=== PATIENT | female | born 1965 | race Caucasian/White ===

== ENCOUNTER 2016-03-30 11:21 | Emergency (ER) | payer SELFPAY ==
[~2016-03-30] VITALS: Ht 154.9 cm; Wt 80.0 kg
[2016-03-30] MEDS ORDERED: LANTUS100 MG/ML SC (12:50)
[2016-03-30] MEDS ORDERED: HUMALOG100 UNIT/M SC (12:51)
[2016-03-30] MEDS ORDERED: ALBUTEROL SUL0.083 % IN (12:53)
[2016-03-30] MEDS ORDERED: OXYCODONE HCL5 MG PO (12:55)
[2016-03-30] MEDS ORDERED: GABAPENTIN300 MG PO (12:56)
[2016-03-30 13:46] LABS: HEMATOCRIT 41.1 % (37.0-47.0); HEMOGLOBIN 13.8 g/dl (12.0-16.0); IMMATURE GRANULOCYTES 0.3 % (0.0-1.0); MEAN CELL VOLUME 86.5 fL CALC (80.0-100.0); MEAN CORPUSCULAR HGB 29.1 pG CALC (26.0-32.0); MEAN CORPUSCULAR HGB CONC 33.6 g/L CALC (32.0-36.0); NEUT# 6.45 thou/uL (2.00-7.15); RED BLOOD COUNT 4.75 mill/uL (4.20-5.60); RED CELL DISTRI WIDTH 14.1 % (11.5-15.5)
[2016-03-30 13:58] LABS: ALBUMIN 3.9 g/dL (3.2-5.0); ALKALINE PHOSPHATASE 177 u/l (38-126); ANION GAP 17 (6-22 (CALC)); BILIRUBIN, TOTAL 0.5 mg/dL (0.0-1.4); BUN 16 mg/dL (7-17); BUN/CREATININE RATIO 28 (12-20 (CALC)); CARBON DIOXIDE 26 mmol/l (22-30); CHLORIDE 107 mmol/l (95-108); CREATININE 0.6 mg/dL (0.5-1.0); GFR > 60 ML/MIN (>=60 (CALC)); GFR FOR AFR.AMER. > 60 ML/MIN (>=60 (CALC)); GLUCOSE 87 mg/dL (65-105); LIPASE 115 u/l (23-300); POTASSIUM 4.3 mmol/l (3.5-5.1); SGOT/AST 35 u/l (14-36); SGPT/ALT 43 u/l (9-52); SODIUM 145 mmol/l (137-146); TOTAL PROTEIN 8.1 g/dL (6.3-8.2)
[2016-03-30 18:08] LABS: URINE BILIRUBIN - DIPSTICK NEGATIVE (NEGATIVE); URINE BLOOD DIPSTICK NEGATIVE (NEGATIVE); URINE CLARITY CLEAR; URINE COLOR YELLOW; URINE GLUCOSE - DIPSTICK NEGATIVE (NEGATIVE); URINE KETONE NEGATIVE (NEGATIVE); URINE LEUK ESTERASE NEGATIVE (Negative); URINE NITRITE - DIPSTICK NEGATIVE (Negative); URINE PH 6.5 (4.5-8.0); URINE PROTEIN - DIPSTICK NEGATIVE (NEG-TRACE); URINE SPECIFIC GRAVITY 1.015
[2016-03-30] MEDS ORDERED: PERCOCET 5/325M1 TAB PO (18:30)
[2016-03-30] MEDS ORDERED: CLEOCIN150 MG PO (18:30)
[2016-03-30 19:39] VITALS: BP 131/71
== END 2016-03-30 19:39 | disposition home or self-care (01) | DRG 394 ==
LOC: ED 11:21
PROVIDERS: Emergency Medicine
DX: K43.9 Ventral hernia without obstruction or gangrene (principal); L03.114 Cellulitis of left upper limb; E11.9 Type 2 diabetes mellitus without complications; J45.909 Unspecified asthma, uncomplicated; F17.210 Nicotine dependence, cigarettes, uncomplicated
CPT/HCPCS: Q9967

== ENCOUNTER 2016-11-19 02:37 | Observation (INO) | payer OTHER ==
[~2016-11-19] VITALS: Ht 154.9 cm; Wt 105.0 kg
[~2016-11-19 02:37] MED LIST: ALBUTEROL SUL0.083 % IN; CLEOCIN150 MG PO; GABAPENTIN300 MG PO; HUMALOG100 UNIT/M SC; LANTUS100 MG/ML SC; OXYCODONE HCL5 MG PO; PERCOCET 5/325M1 TAB PO
[2016-11-19 03:37] LABS: URINE BILIRUBIN - DIPSTICK NEGATIVE (NEGATIVE); URINE BLOOD DIPSTICK NEGATIVE (NEGATIVE); URINE CLARITY SLIGHT CLOUDY; URINE COLOR YELLOW; URINE GLUCOSE - DIPSTICK NEGATIVE (NEGATIVE); URINE KETONE NEGATIVE (NEGATIVE); URINE NITRITE - DIPSTICK POSITIVE (Negative); URINE PH 5.5 (4.5-8.0); URINE PROTEIN - DIPSTICK NEGATIVE (NEG-TRACE); URINE SPECIFIC GRAVITY >=1.030
[2016-11-19 03:38] LABS: HEMATOCRIT 39.2 % (37.0-47.0); IMMATURE GRANULOCYTES 0.2 % (0.0-1.0); MEAN CELL VOLUME 91.8 fL CALC (80.0-100.0); MEAN CORPUSCULAR HGB 30.4 pG CALC (26.0-32.0); MEAN CORPUSCULAR HGB CONC 33.2 g/L CALC (32.0-36.0); NEUT# 5.65 thou/uL (2.00-7.15); RED BLOOD COUNT 4.27 mill/uL (4.20-5.60); RED CELL DISTRI WIDTH 13.3 % (11.5-15.5)
[2016-11-19 03:42] LABS: URINE BACTERIA MANY hpf; URINE LEUK ESTERASE SMALL (NEGATIVE); URINE MUCUS MODERATE hpf (NONE-FEW); URINE RBC 0-2 RBC/hpf (0-5); URINE SQUAMOUS EPITHELIAL CELL MANY EPI/hpf (0-FEW)
[2016-11-19 03:43] LABS: BARBITURATES NEGATIVE (NEGATIVE); COCAINE POSITIVE (NEGATIVE); METHADONE NEGATIVE (NEGATIVE); OXCYCODONE NEGATIVE (NEGATIVE); TETRAHYDROCANNABIONOL NEGATIVE (NEGATIVE); TRICYLIC ANTIDEPRESSANTS NEGATIVE (NEGATIVE)
[2016-11-19 03:48] LABS: ALBUMIN 3.9 g/dL (3.2-5.0); ALKALINE PHOSPHATASE 175 u/l (38-126); ANION GAP 16 (6-22 (CALC)); BILIRUBIN, TOTAL 0.9 mg/dL (0.0-1.4); BUN 15 mg/dL (7-17); BUN/CREATININE RATIO 21 (12-20 (CALC)); CALCIUM 9.1 mg/dL (8.4-10.2); CARBON DIOXIDE 27 mmol/l (22-30); CHLORIDE 106 mmol/l (95-108); CREATININE 0.7 mg/dL (0.5-1.0); GFR > 60 ML/MIN (>=60 (CALC)); GFR FOR AFR.AMER. > 60 ML/MIN (>=60 (CALC)); GLUCOSE 102 mg/dL (65-105); POTASSIUM 3.8 mmol/l (3.5-5.1); SGOT/AST 35 u/l (14-36); SGPT/ALT 37 u/l (9-52); SODIUM 144 mmol/l (137-146); TOTAL PROTEIN 7.7 g/dL (6.3-8.2)
[2016-11-19 05:55] VITALS: BP 111/56
[2016-11-19 07:50] VITALS: BP 111/56
[2016-11-19 16:30] VITALS: BP 98/62
[2016-11-19 19:32] VITALS: BP 116/70
[2016-11-19] MEDS ORDERED: GABAPENTIN100 MG PO (19:38)
[2016-11-20 00:12] LABS: HEMATOCRIT 38.7 % (37.0-47.0); HEMOGLOBIN 12.9 g/dl (12.0-16.0); MEAN CELL VOLUME 91.9 fL CALC (80.0-100.0); MEAN CORPUSCULAR HGB 30.6 pG CALC (26.0-32.0); MEAN CORPUSCULAR HGB CONC 33.3 g/L CALC (32.0-36.0); RED BLOOD COUNT 4.21 mill/uL (4.20-5.60); RED CELL DISTRI WIDTH 13.4 % (11.5-15.5)
[2016-11-20 04:44] VITALS: BP 114/71
[2016-11-20 07:04] LABS: ANION GAP 13 (6-22 (CALC)); BUN 14 mg/dL (7-17); BUN/CREATININE RATIO 21 (12-20 (CALC)); CALCIUM 8.8 mg/dL (8.4-10.2); CARBON DIOXIDE 28 mmol/l (22-30); CHLORIDE 105 mmol/l (95-108); CREATININE 0.7 mg/dL (0.5-1.0); GFR > 60 ML/MIN (>=60 (CALC)); GFR FOR AFR.AMER. > 60 ML/MIN (>=60 (CALC)); GLUCOSE 113 mg/dL (65-105); SODIUM 142 mmol/l (137-146)
[2016-11-20 08:30] VITALS: BP 107/58
[2016-11-20] MEDS ORDERED: CIPROFLOXACN500 MG PO (10:42)
[2016-11-20] MEDS ORDERED: GABAPENTIN100 MG PO (12:28)
[2016-11-20] MEDS ORDERED: LASIX 20 MG TAB20 MG PO (12:31)
== END 2016-11-20 12:57 | disposition home or self-care (01) | DRG 603 ==
LOC: ED 02:37 → ED-I 04:20 → ED 04:35 → MS2 04:36
PROVIDERS: Emergency Medicine; ADMIT Internal Medicine; ATTEND Internal Medicine
PROC: 3E0234Z Introduction of Serum, Toxoid and Vaccine into Muscle, Percutaneous Approach (ICD-10-PCS; principal; 2016-11-20)
PROC: 3E0234Z Introduction of Serum, Toxoid and Vaccine into Muscle, Percutaneous Approach (ICD-10-PCS; 2016-11-20)
DX: L03.116 Cellulitis of left lower limb (principal); E11.40 Type 2 diabetes mellitus with diabetic neuropathy, unspecified; K70.9 Alcoholic liver disease, unspecified; N39.0 Urinary tract infection, site not specified; L03.115 Cellulitis of right lower limb; B19.20 Unspecified viral hepatitis C without hepatic coma; F15.10 Other stimulant abuse, uncomplicated; F14.10 Cocaine abuse, uncomplicated; F11.10 Opioid abuse, uncomplicated; J45.909 Unspecified asthma, uncomplicated; F17.210 Nicotine dependence, cigarettes, uncomplicated; F10.21 Alcohol dependence, in remission; B96.20 Unspecified Escherichia coli [E. coli] as the cause of diseases classified elsewhere; Z23 Encounter for immunization; Z91.14 Patient's other noncompliance with medication regimen; Z79.4 Long term (current) use of insulin
CPT/HCPCS: G0378; J1650; J1956

== ENCOUNTER 2016-12-04 18:58 | Emergency (ER) | payer OTHER ==
[~2016-12-04] VITALS: Ht 154.9 cm; Wt 109.0 kg
[~2016-12-04 18:58] MED LIST changes: +CIPROFLOXACN500 MG PO; +GABAPENTIN100 MG PO; +LASIX 20 MG TAB20 MG PO
[2016-12-04 19:58] LABS: HEMATOCRIT 40.4 % (37.0-47.0); HEMOGLOBIN 13.6 g/dl (12.0-16.0); IMMATURE GRANULOCYTES 0.7 % (0.0-1.0); MEAN CELL VOLUME 90.6 fL CALC (80.0-100.0); MEAN CORPUSCULAR HGB 30.5 pG CALC (26.0-32.0); MEAN CORPUSCULAR HGB CONC 33.7 g/L CALC (32.0-36.0); NEUT# 6.77 thou/uL (2.00-7.15); RED BLOOD COUNT 4.46 mill/uL (4.20-5.60); RED CELL DISTRI WIDTH 13.3 % (11.5-15.5)
[2016-12-04 20:05] LABS: URINE BILIRUBIN - DIPSTICK NEGATIVE (NEGATIVE); URINE BLOOD DIPSTICK NEGATIVE (NEGATIVE); URINE CLARITY CLEAR; URINE COLOR YELLOW; URINE GLUCOSE - DIPSTICK NEGATIVE (NEGATIVE); URINE KETONE NEGATIVE (NEGATIVE); URINE LEUK ESTERASE NEGATIVE (NEGATIVE); URINE NITRITE - DIPSTICK NEGATIVE (Negative); URINE PROTEIN - DIPSTICK NEGATIVE (NEG-TRACE); URINE SPECIFIC GRAVITY 1.015; URINE UROBILINOGEN - DIPSTICK 0.2 E.U./dL (0.2)
[2016-12-04 20:26] LABS: ALBUMIN 3.9 g/dL (3.2-5.0); ALKALINE PHOSPHATASE 178 u/l (38-126); AMYLASE 42 u/l (30-110); ANION GAP 14 (6-22 (CALC)); BUN 13 mg/dL (7-17); BUN/CREATININE RATIO 21 (12-20 (CALC)); CALCIUM 9.5 mg/dL (8.4-10.2); CARBON DIOXIDE 27 mmol/l (22-30); CHLORIDE 103 mmol/l (95-108); CREATININE 0.6 mg/dL (0.5-1.0); GFR > 60 ML/MIN (>=60 (CALC)); GFR FOR AFR.AMER. > 60 ML/MIN (>=60 (CALC)); GLUCOSE 101 mg/dL (65-105); LIPASE 45 u/l (23-300); POTASSIUM 4.4 mmol/l (3.5-5.1); SGOT/AST 42 u/l (14-36); SGPT/ALT 42 u/l (9-52); SODIUM 140 mmol/l (137-146); TOTAL PROTEIN 7.8 g/dL (6.3-8.2)
[2016-12-04] MEDS ORDERED: ZOFRAN ODT4 MG PO (22:35)
[2016-12-04] MEDS ORDERED: ULTRAM50 M1 PO (22:35)
[2016-12-04] MEDS ORDERED: PREVACID30 M3 PO (22:35)
[2016-12-04] MEDS ORDERED: NAPROSYN500 MG PO (22:42)
[2016-12-04 22:45] VITALS: BP 140/92
[2016-12-04 23:01] LABS: COCAINE POSITIVE (NEGATIVE); METHADONE NEGATIVE (NEGATIVE); TETRAHYDROCANNABIONOL NEGATIVE (NEGATIVE)
[2016-12-04 23:02] LABS: BARBITURATES NEGATIVE (NEGATIVE); OXCYCODONE NEGATIVE (NEGATIVE); TRICYLIC ANTIDEPRESSANTS NEGATIVE (NEGATIVE)
== END 2016-12-04 22:45 | disposition home or self-care (01) | DRG 392 ==
LOC: ED 18:58
PROVIDERS: Emergency Medicine
DX: R10.13 Epigastric pain (principal); E11.40 Type 2 diabetes mellitus with diabetic neuropathy, unspecified; K74.60 Unspecified cirrhosis of liver; R10.11 Right upper quadrant pain; R10.12 Left upper quadrant pain; K80.20 Calculus of gallbladder without cholecystitis without obstruction; J45.909 Unspecified asthma, uncomplicated; F17.210 Nicotine dependence, cigarettes, uncomplicated; F19.10 Other psychoactive substance abuse, uncomplicated
CPT/HCPCS: Q9967; S0164

== ENCOUNTER 2017-08-09 22:00 | Observation (INO) | payer OTHER ==
[~2017-08-09] VITALS: Ht 154.9 cm; Wt 114.1 kg
[~2017-08-09 22:00] MED LIST changes: +NAPROSYN500 MG PO; +PREVACID30 M3 PO; +ULTRAM50 M1 PO; +ZOFRAN ODT4 MG PO
--- NOTE | 2017-08-09 22:38 | NUR ---
ATTEMPTED IV START X 2 WITHOUT SUCCESS. LAB HERE TO DRAW BLOOD.
[2017-08-09 22:59] LABS: HEMATOCRIT 43.6 % (37.0-47.0); HEMOGLOBIN 14.4 g/dl (12.0-16.0); IMMATURE GRANULOCYTES 0.6 % (0.0-1.0); MEAN CELL VOLUME 92.2 fL CALC (80.0-100.0); MEAN CORPUSCULAR HGB 30.4 pG CALC (26.0-32.0); NEUT# 11.88 thou/uL (2.00-7.15); RED BLOOD COUNT 4.73 mill/uL (4.20-5.60); RED CELL DISTRI WIDTH 13.3 % (11.5-15.5)
[2017-08-09 23:10] LABS: ALBUMIN 3.9 g/dL (3.2-5.0); ALKALINE PHOSPHATASE 169 u/l (38-126); AMYLASE 47 u/l (30-110); ANION GAP 15 (6-22 (CALC)); BILIRUBIN, TOTAL 1.5 mg/dL (0.0-1.4); BUN 8 mg/dL (7-17); BUN/CREATININE RATIO 14 (12-20 (CALC)); CARBON DIOXIDE 24 mmol/l (22-30); CHLORIDE 105 mmol/l (95-108); CREATININE 0.6 mg/dL (0.5-1.0); GFR > 60 ML/MIN (>=60 (CALC)); GFR FOR AFR.AMER. > 60 ML/MIN (>=60 (CALC)); LIPASE 14 u/l (23-300); SGOT/AST 32 u/l (14-36); SGPT/ALT 32 u/l (9-52); SODIUM 140 mmol/l (137-146); TOTAL PROTEIN 8.4 g/dL (6.3-8.2)
[2017-08-09 23:21] LABS: MYOGLOBIN 23 ng/mL (0 - 62)
--- NOTE | 2017-08-10 | NUR ---
RESTING QUIETLY AWAITING DISPO.
[2017-08-10 00:35] LABS: URINE BLOOD DIPSTICK SMALL (NEGATIVE); URINE COLOR YELLOW; URINE GLUCOSE - DIPSTICK NEGATIVE (NEGATIVE); URINE KETONE NEGATIVE (NEGATIVE); URINE NITRITE - DIPSTICK NEGATIVE (Negative); URINE PROTEIN - DIPSTICK NEGATIVE (NEG-TRACE); URINE SPECIFIC GRAVITY 1.025
[2017-08-10 00:37] LABS: URINE CLARITY SL CLOUDY; URINE LEUK ESTERASE MODERATE (NEGATIVE)
[2017-08-10 00:39] LABS: URINE BILIRUBIN - DIPSTICK NEGATIVE (NEGATIVE)
[2017-08-10 00:42] LABS: BARBITURATES NEGATIVE (NEGATIVE); COCAINE NEGATIVE (NEGATIVE); METHADONE NEGATIVE (NEGATIVE); TETRAHYDROCANNABIONOL NEGATIVE (NEGATIVE); TRICYLIC ANTIDEPRESSANTS NEGATIVE (NEGATIVE)
[2017-08-10 00:43] LABS: OXCYCODONE NEGATIVE (NEGATIVE)
[2017-08-10 00:47] LABS: URINE BACTERIA FEW hpf; URINE TRICHOMONAS MODERATE hpf; URINE WBC 20-50 WBC/hpf (0-5)
[2017-08-10 00:48] LABS: URINE CALCIUM OXALATE CRYSTALS MODERATE lpf; URINE SQUAMOUS EPITHELIAL CELL MODERATE EPI/hpf (0-FEW)
--- NOTE | 2017-08-10 01:13 | NUR ---
Admission Note Report Given to: YULIANA MARTINEZ Transported by: Wheelchair X Stretcher Transported with: X Nurse Transporter X Patent IV O2 Buttermaker
[2017-08-10 01:27] VITALS: BP 115/73
--- NOTE | 2017-08-10 01:36 | NUR ---
IV FLUIDS ADMINISTERED ORDERS PROVIDE. PT.DENIES ANY OTHER NEEDS AND APPEARS TO BE SLEEPING COMFORTABLY. NO S/S OF DISTRESS NOTED.
--- NOTE | 2017-08-10 01:40 | NUR ---
PT.ARRIVED TO FLOOR VIA STRETCHER ACCOMPANIED BY RN FROM ED. PT.APPEARS TO BE IN STABLE CONDITION UPON ARRIVING TO FLOOR. PT.SELF AMBULATED TO STANDING SCALE AND TO BED. V/S ASSESSED, PT.ORIENTED TO BED,CALL SYSTEM,LIGHTS,TV AND ROOM. ASSESSMENT COMPLETED AND PICTURES OBTAINED OF LOWER LEGS BILAT FOR DIABETIC WOUND ULCERS. ABD IS DIST/FIRM AND TENDER IN UPPER QUADRANTS, HYPO BOWEL SOUNDS THROUGHOUT.
[2017-08-10 05:00] VITALS: BP 88/58
--- NOTE | 2017-08-10 06:08 | NUR ---
PT.C/O LOWER EXTREMETIES BOTHERING HER. SHE REQUESTED SOMETHING TO "SPRAY ON THEM." POC DISCUSSED W/PT. CALL LIGHT AT BEDSIDE AND PT.ENCOURAGED TO CALL IF ANY OTHER NEEDS ARISE.
--- NOTE | 2017-08-10 06:50 | NUR ---
PT.CALLED, ASSISTED TO BSC. PT.REQUESTED A WHEELCHAIR TO GO DOWNSTAIRS AND SMOKE. I EXPLAINED TO HER THAT WE DO NOT ALLOW PT'S TO EXIT UNIT FLOOR TO SMOKE, THAT WE ARE A SMOKE FREE CAMPUS. I OFFERED TO GET HER AN ORDER FOR A NICOTINE PATCH AND SHE REPLIED, "I DON'T WANT A PATCH, I WANT A CIGARETTE." PT.ASSISTED BACK TO BED AFTER CLEAN BEDDING PLACED. LOWER EXT BILAT ARE WHEEPING.
--- NOTE | 2017-08-10 08:16 | NUR ---
PT RESTING IN BED C/O PAIN 11/16, NOTIFIED. PT MEDICATED PER APR. RESP EVEN AND UNLABORED. PT HAS OPEN SORES TO BLE, WEEPING. PT STATES SHE HAS BEEN PUTTING VASELINE ON WOUNDS. NO C/O ABD PAIN. ASSESSMENT COMPLETED AT THIS TIME. CALL LIGHT IN REACH,CONTINUE TO MONITOR.
[2017-08-10 09:01] VITALS: BP 101/58
--- NOTE | 2017-08-10 09:01 | NUR ---
LAST GRASTROGRAFIN GIVEN, TOLERATED WELL. PT STATES SHE CONTINUES TO HAVE PAIN, WILL NOTIFY MD. RADIOLOGY NOTIFIED. VSS, CONTINUE TO MONITOR.
--- NOTE | 2017-08-10 12:50 | NUR ---
PATIENT WAS GIVEN PNEUMONIA VACCINE ON 11/20/16, SHE WILL NOT NEED TO BE GIVEN ANOTHER PNEUMONIA VACCINE UNTIL SHE TURNS 65 ACCORDING TO CURRENT CDC GUIDELINES
--- NOTE | 2017-08-10 13:00 | NUR ---
PT HAD BEEN MEDICATED FOR PAIN WITH IV MORPHINE, DISCUSSED DRESSING CHANGE. PT AND FIANCE IN AGREEMENT. PT HAS 4 OPEN WOUNDS TO LLE. WHEEPING WOUND CULTURED, WOUNDS ARE FOUL SMELLING. CLEANSED WITH NS AND BACTROBAN APPLIED, COVERED WITH TELFA AND WRAPPED WITH KERLEX. PT TOLERATED WELL. CALL LIGHT IN REACH,CONTINUE TO MONITOR.
--- NOTE | 2017-08-10 14:49 | NUR ---
DR. GARDUNO WAS CALLED AND HE SAID HE'LL BE HAPPY TO SEE THE PATIENT TUESDAY MORNING. ALL INFORMATION REGARDING THE CONSULT WAS GIVEN DIRECTLY TO HIM OVE THE PHONE. EDI WATTS MS/JACK
--- NOTE | 2017-08-10 14:51 | NUR ---
S: CALIN FAULKNER is a 51 F who presents with ABDOMINAL PAIN . She has a history of SEE HX. All medications in patient's chart were reviewed. O: VS: BP <101/58>, P<79>, RR<18>,T<98.2> W <114 kg>, HT<61 IN>, Scr=<0.6>,CrCl= <83ml/min> A: Blood culture <is pending which is sensitive to <>. Urine culture <is pending which is sensitive to <>. P: Patient is on <LEVAQUIN FLAGYL AND VANCO>. Vancomycin ordered for pharmacy to dose. Start Vancomycin <1000 MG> IV Q<8>H. Vancomycin trough is drawn before the 4th dose on <08/11/17 @1030>. Vancomycin goal trough is between <10-20 mcg/ml>. Pharmacy will follow and or advise on antibiotics use as needed.
[2017-08-10 15:05] VITALS: BP 116/71
[2017-08-10 19:00] VITALS: BP 109/66
--- NOTE | 2017-08-10 22:03 | NUR ---
PT CONTINUES C/O SEVERE PAIN TO BLE; STATES THAT WE ARE NOT DOING ANYTHING TO ADDRESS HER PAIN, PT IS GETTING LORTAB Q4H, PO, STATES IS NOT WORKING, PT CONTINUES CALLING MULTIPLE TIMES ASKING FOR PAIN MED, IS REQUESTING TO TALK TO THE DOCTOR. 2199-CALLED DR. HERNADEZ AND NOTIFIED, ORDER FOR MORPHINE 2MG IV X1 DOSE NOW, FAXED TO [facility]. WILL ADMINISTER ORDER.
--- NOTE | 2017-08-10 22:35 | NUR ---
MEDICATED PT WITH MORPHINE 2MG IV AT THIS TIME; FOUND PT CRYING, STATES "I CAN'T TAKE THIS PAIN ANYMORE." RATES IT AT 10/10 PAIN TO BLE.
--- NOTE | 2017-08-10 22:49 | NUR ---
FOUND PT WITH DRESSING SOAKING WET FROM OPEN BLISTER LEAKING YELLOW/DESIR FLUID, CHANGED DRESSING TO LLE AND APPLIED BACTOBRAN PER ORDERS, RLE DRESSING REMAINS CDI, WILL CONTINUE TO MONITOR, PT COMPLAINTS OF SEVERE THROBBING PAIN LLE, PREVIOUSLY MEDICATED WITH MORPHINE IV PER ORDERS. FACIAL GRIMACING NOTED AND CRYING.
--- NOTE | 2017-08-10 23:13 | NUR ---
PT VOICES PAIN IS BETTER, RATES AT 5/10 TO BLE, NO S/S OF DISTRESS NOTER, NO FACIAL GRIMACING OR CRYING AT THIS TIME. WILL CONTINUE TO MONITOR, PROVIDED EXTRA BLANKETS PER REQUEST.
[2017-08-11 04:00] VITALS: BP 118/77
[2017-08-11 05:13] LABS: HEMATOCRIT 40.2 % (37.0-47.0); HEMOGLOBIN 13.2 g/dl (12.0-16.0); MEAN CELL VOLUME 93.1 fL CALC (80.0-100.0); MEAN CORPUSCULAR HGB 30.6 pG CALC (26.0-32.0); MEAN CORPUSCULAR HGB CONC 32.8 g/L CALC (32.0-36.0); RED BLOOD COUNT 4.32 mill/uL (4.20-5.60); RED CELL DISTRI WIDTH 13.2 % (11.5-15.5)
[2017-08-11 05:26] LABS: ANION GAP 12 (6-22 (CALC)); BUN 9 mg/dL (7-17); BUN/CREATININE RATIO 19 (12-20 (CALC)); CALCULATED LDLCHOLESTEROL 28 mg/dL (62-129 (CALC)); CARBON DIOXIDE 23 mmol/l (22-30); CHLORIDE 110 mmol/l (95-108); CHOLESTEROL HDL RATIO 1.9 (<4.4 (CALC)); CREATININE 0.5 mg/dL (0.5-1.0); GFR > 60 ML/MIN (>=60 (CALC)); GFR FOR AFR.AMER. > 60 ML/MIN (>=60 (CALC)); HDL CHOLESTEROL 49 mg/dL (>=40); POTASSIUM 3.7 mmol/l (3.5-5.1); SODIUM 142 mmol/l (137-146); TOTAL CHOLESTEROL 93 mg/dl (0-199); TOTAL TRIGLYCERIDES 76 mg/dl (30-149); VLDL CHOLESTROL 15 mg/dl (2-49 (CALC))
--- NOTE | 2017-08-11 05:58 | NUR ---
PT IS RESTING COMFORTABLY IN BED AT THIS TIME, ABX INFUSING WITHOUT DIFFICULTY PER ORDERS, IV SITE PATENT, NO DISTRESS NOTED, WILL CONTINUE TO MONITOR. PT VOICES NO NEEDS OR PAIN NOW.
--- NOTE | 2017-08-11 07:00 | NUR ---
SHIFT CHANGE REPORT FROM KAREEN, PT SLEEPING BUT AROUSES TO VERBAL STIMULI, DRESSING INTACT TO BLE, IVF INFUSING, WILL CONTINUE TO MONITOR, CALL SMITH IN REACH.
[2017-08-11 09:04] VITALS: BP 109/72
--- NOTE | 2017-08-11 11:14 | NUR ---
PT COMPLAIN PAIN NOT IMPROVED WITH ORAL ANALGESICS, REQUESTING IV MORPHINE WHICH SHE REPORTED HAS HELPED HER TREMENDOUSLY. EDUCATED ON REASONS MD HAS ORDERED PO MEDS, WHEN ASKED WHAT SHE TAKES AT HOME REPORTED SHE TAKES IBUPROFEN BUT DOES NOT WANT IT HERE, WILL CONTINUE TO MONITOR AND ADDRESS NEEDS.
[2017-08-11 15:30] VITALS: BP 114/77
--- NOTE | 2017-08-11 18:50 | NUR ---
BEDSIDE REPORT RECEIVED FROM DAY NURSE WHO IS IN ADMINISTERING ANTIBIOTIC IV THERAPY. PT.IS UPRIGHT IN BED W/LIGHTS AND TV ON. LEGS BILAT ELEVATED ON PILLOW W/DRESSING TO BOTH CDI. REPORTS DRESSING CHANGE TODAY. PT.REPORTS FEELING BETTER THAN WHEN SHE FIRST GOT TO HOSPITAL. PT.ENCOURAGED TO CALL IF ANY NEEDS ARISE. CALL LIGHT IN HAND
[2017-08-11 19:00] VITALS: BP 120/88
--- NOTE | 2017-08-11 22:00 | NUR ---
PT.MEDICATED ORDERS PROVIDE. ASSESSMENT COMPLETED AT THIS TIME. LUNG SOUNDS ARE WHEEZY POST THROUGHOUT AND WHEEZY UPPER ANTER. DRESSING TO LOWER EXT BILAT ARE CDI, PT.LOCX4. PT PROVIDED W/FRESH WATER, DENIES ANY OTHER NEEDS AT THIS TIME. CALL LIGHT IS W/IN REACH AND PT.ENCOURAGED TO CALL ANY NEEDS ARISE.
--- NOTE | 2017-08-12 03:00 | NUR ---
PT.MEDICATED FOR C/O PAIN REPORTED 10/10 ON PAIN SCALE IN LOWER EXT BILAT. SHE REPORTS THE PAIN THROBBING AND BURNING. DRESSING APPEARS CDI AT THIS TIME AND LEGS ARE ELEVATED. PT. ALSO MEDICATED W/IV ANTIBIOTICS ORDERED AND PT.ENCOURAGED TO CALL IF SHE HAS ANY NEEDS AT THIS TIME.
[2017-08-12 04:24] VITALS: BP 130/88
[2017-08-12 04:26] VITALS: BP 115/75
[2017-08-12 05:48] LABS: HEMATOCRIT 40.1 % (37.0-47.0); HEMOGLOBIN 13.1 g/dl (12.0-16.0); IMMATURE GRANULOCYTES 1.4 % (0.0-1.0); MEAN CORPUSCULAR HGB 30.4 pG CALC (26.0-32.0); MEAN CORPUSCULAR HGB CONC 32.7 g/L CALC (32.0-36.0); NEUT# 5.59 thou/uL (2.00-7.15); RED BLOOD COUNT 4.31 mill/uL (4.20-5.60); RED CELL DISTRI WIDTH 13.2 % (11.5-15.5)
[2017-08-12 06:01] LABS: ANION GAP 11 (6-22 (CALC)); BUN 8 mg/dL (7-17); BUN/CREATININE RATIO 16 (12-20 (CALC)); CARBON DIOXIDE 26 mmol/l (22-30); CHLORIDE 107 mmol/l (95-108); CREATININE 0.5 mg/dL (0.5-1.0); GFR > 60 ML/MIN (>=60 (CALC)); GFR FOR AFR.AMER. > 60 ML/MIN (>=60 (CALC)); MAGNESIUM 1.7 mg/dL (1.6-2.3); POTASSIUM 4.1 mmol/l (3.5-5.1); SODIUM 139 mmol/l (137-146)
--- NOTE | 2017-08-12 07:25 | NUR ---
SHIFT CHANGE REPORT FROM JESSIKA MEEKS SLEEPING BUT AWAKENED TO VERBAL STIMULI, IVF INFUSING, NO COMPLAINS AT THIS TIME, DRESSINGS TO LOWER EXT CDI, CALL SMITH IN REACH.
[2017-08-12 08:52] VITALS: BP 116/55
--- NOTE | 2017-08-12 12:12 | NUR ---
SET UP FOR SHOWER AND HAD IT DONE, DRESSINGS TO BLE CHANGED, ALL NEEDS ADDRESSED, HAVING MEAL AT TIHS TIME.
--- NOTE | 2017-08-12 12:51 | NUR ---
SPOKE WITH KP FROM OFFICE TO VERIFY THE CONSULT @ 9341. I AM WAITING ON TO CALL TO VERIFY THST HE GOT THE MESSAGE.
[2017-08-12] MEDS ORDERED: MUPIROCIN2 % TOP (14:30)
[2017-08-12] MEDS ORDERED: PERCOCET 10/31 COMBO PO (14:40)
[2017-08-12] MEDS ORDERED: DOXYCYCL HYC100 MG PO (14:41)
[2017-08-12 15:09] VITALS: BP 109/81
--- NOTE | 2017-08-12 16:36 | NUR ---
Discharge instructions given. Patient verbalizes understanding of same. Discharged in stable condition via Wheelchair to Home with family. All belongings sent with pt.
== END 2017-08-12 16:41 | disposition home health service (06) ==
LOC: ED 22:00 → ED-I 08-10 00:34 → ED 08-10 00:51 → MS2 08-10 00:52
PROVIDERS: Emergency Medicine; Internal Medicine; Nurse Practitioner Family; ADMIT Internal Medicine; ATTEND Internal Medicine
DX: K56.51 Intestinal adhesions [bands], with partial obstruction (principal); E03.9 Hypothyroidism, unspecified; L03.116 Cellulitis of left lower limb; L03.115 Cellulitis of right lower limb; B19.20 Unspecified viral hepatitis C without hepatic coma; K70.9 Alcoholic liver disease, unspecified; F15.10 Other stimulant abuse, uncomplicated; F11.10 Opioid abuse, uncomplicated; F10.20 Alcohol dependence, uncomplicated; T63.421A Toxic effect of venom of ants, accidental (unintentional), initial encounter; L97.929 Non-pressure chronic ulcer of unspecified part of left lower leg with unspecified severity; L97.919 Non-pressure chronic ulcer of unspecified part of right lower leg with unspecified severity; G89.4 Chronic pain syndrome; E11.42 Type 2 diabetes mellitus with diabetic polyneuropathy; F17.210 Nicotine dependence, cigarettes, uncomplicated; J45.909 Unspecified asthma, uncomplicated
CPT/HCPCS: G0378; J1650; J1956; Q9967

== ENCOUNTER 2017-11-12 06:06 | Emergency (ER) | payer OTHER ==
[~2017-11-12] VITALS: Ht 154.9 cm; Wt 155.0 kg
[~2017-11-12 06:06] MED LIST changes: +DOXYCYCL HYC100 MG PO; +MUPIROCIN2 % TOP; +PERCOCET 10/31 COMBO PO
[2017-11-12 06:57] LABS: HEMATOCRIT 42.8 % (37.0-47.0); HEMOGLOBIN 13.8 g/dl (12.0-16.0); IMMATURE GRANULOCYTES 0.4 % (0.0-5.0); MEAN CELL VOLUME 95.5 fL CALC (80.0-100.0); MEAN CORPUSCULAR HGB 30.8 pG CALC (26.0-32.0); MEAN CORPUSCULAR HGB CONC 32.2 g/L CALC (32.0-36.0); NEUT# 6.81 thou/uL (2.00-7.15); RED BLOOD COUNT 4.48 mill/uL (4.20-5.60)
[2017-11-12 07:03] LABS: ALBUMIN 3.5 g/dL (3.2-5.0); ANION GAP 12 (6-22 (CALC)); BILIRUBIN, TOTAL 0.9 mg/dL (0.0-1.4); BUN 13 mg/dL (7-17); BUN/CREATININE RATIO 22 (12-20 (CALC)); CARBON DIOXIDE 28 mmol/l (22-30); CHLORIDE 105 mmol/l (95-108); CREATININE 0.6 mg/dL (0.5-1.0); GFR > 60 ML/MIN (>=60 (CALC)); GFR FOR AFR.AMER. > 60 ML/MIN (>=60 (CALC)); POTASSIUM 3.8 mmol/l (3.5-5.1); SGOT/AST 39 u/l (14-36); SODIUM 142 mmol/l (137-146); TOTAL PROTEIN 7.4 g/dL (6.3-8.2)
[2017-11-12 07:04] LABS: ALKALINE PHOSPHATASE 257 u/l (38-126)
[2017-11-12 07:54] LABS: URINE BLOOD DIPSTICK LARGE (NEGATIVE); URINE GLUCOSE - DIPSTICK NEGATIVE (NEGATIVE); URINE KETONE NEGATIVE (NEGATIVE); URINE LEUK ESTERASE NEGATIVE (NEGATIVE); URINE NITRITE - DIPSTICK NEGATIVE (Negative); URINE PH 5.5 (4.5-8.0); URINE PROTEIN - DIPSTICK TRACE mg/dL (NEG-TRACE); URINE SPECIFIC GRAVITY >=1.030
[2017-11-12 07:57] LABS: URINE BILIRUBIN - DIPSTICK SMALL (NEGATIVE)
[2017-11-12 07:58] LABS: URINE CLARITY SL CLOUDY; URINE COLOR DK. YELLOW; URINE EPITHELIAL CELLS MODERATE EPI/hpf (0-FEW)
[2017-11-12 08:00] LABS: BARBITURATES NEGATIVE (NEGATIVE); COCAINE NEGATIVE (NEGATIVE); METHADONE NEGATIVE (NEGATIVE); OXCYCODONE NEGATIVE (NEGATIVE); TETRAHYDROCANNABIONOL NEGATIVE (NEGATIVE); TRICYLIC ANTIDEPRESSANTS NEGATIVE (NEGATIVE)
[2017-11-12] MEDS ORDERED: ULTRAM50 MG PO (08:18)
[2017-11-12] MEDS ORDERED: DOXYCYC MONO100 M1 PO (08:18)
[2017-11-12] MEDS ORDERED: BACTROBAN TOP (08:18)
[2017-11-12 09:29] VITALS: BP 133/71
== END 2017-11-12 09:50 | disposition home or self-care (01) ==
LOC: ED 06:06
PROVIDERS: Emergency Medicine
DX: E11.622 Type 2 diabetes mellitus with other skin ulcer (principal); L97.929 Non-pressure chronic ulcer of unspecified part of left lower leg with unspecified severity; L97.919 Non-pressure chronic ulcer of unspecified part of right lower leg with unspecified severity; E11.51 Type 2 diabetes mellitus with diabetic peripheral angiopathy without gangrene; E11.40 Type 2 diabetes mellitus with diabetic neuropathy, unspecified; J45.909 Unspecified asthma, uncomplicated; E03.9 Hypothyroidism, unspecified; E66.01 Morbid (severe) obesity due to excess calories; K74.60 Unspecified cirrhosis of liver; F17.200 Nicotine dependence, unspecified, uncomplicated; Z86.14 Personal history of Methicillin resistant Staphylococcus aureus infection

== ENCOUNTER 2017-11-24 14:44 | Inpatient (IN) | payer OTHER ==
[~2017-11-24] VITALS: Ht 154.9 cm; Wt 94.0 kg
[~2017-11-24 14:44] MED LIST changes: +BACTROBAN TOP; +DOXYCYC MONO100 M1 PO; +ULTRAM50 MG PO
--- NOTE | 2017-11-24 14:50 | NUR ---
PT TO ROOM VIA WC 10 VENOUS ULCERS PER WOUND CARE STAFF
--- NOTE | 2017-11-24 15:06 | NUR ---
PT STATES HAS HAD THESE WOUNDS FOR SEVERAL MONTHS AND HAS GONE [facility] VISIT AND WAS SENT HERE FOR IV ANTIBIOTICS.
[2017-11-24 15:13] LABS: HEMATOCRIT 42.3 % (37.0-47.0); HEMOGLOBIN 14.1 g/dl (12.0-16.0); IMMATURE GRANULOCYTES 0.4 % (0.0-5.0); MEAN CELL VOLUME 92.8 fL CALC (80.0-100.0); MEAN CORPUSCULAR HGB 30.9 pG CALC (26.0-32.0); MEAN CORPUSCULAR HGB CONC 33.3 g/L CALC (32.0-36.0); NEUT# 7.33 thou/uL (2.00-7.15); RED BLOOD COUNT 4.56 mill/uL (4.20-5.60); RED CELL DISTRI WIDTH 13.2 % (11.5-15.5)
--- NOTE | 2017-11-24 15:22 | NUR ---
DRESSINGS TAKEN OFF OF LEGS, AND PICTURES WITH CAMERA TAKEN OF ULCERS AND REDNESS TO KARIN LEGS.
[2017-11-24 15:28] LABS: ANION GAP 12 (6-22 (CALC)); BUN 10 mg/dL (7-17); BUN/CREATININE RATIO 20 (12-20 (CALC)); CARBON DIOXIDE 26 mmol/l (22-30); CHLORIDE 109 mmol/l (95-108); CREATININE 0.5 mg/dL (0.5-1.0); GFR > 60 ML/MIN (>=60 (CALC)); GFR FOR AFR.AMER. > 60 ML/MIN (>=60 (CALC)); POTASSIUM 4.2 mmol/l (3.5-5.1); SODIUM 143 mmol/l (137-146)
[2017-11-24] MEDS ORDERED: GABAPENTIN100 MG PO (15:28)
[2017-11-24] MEDS ORDERED: SYNTHROID75 MCG PO (15:28)
[2017-11-24] MEDS ORDERED: ALBUTEROL SUL0.083 % IN (15:29)
[2017-11-24] MEDS ORDERED: LANTUS100 UNIT/M SC ×2 (15:30)
--- NOTE | 2017-11-24 16:10 | NUR ---
PT RESTING QUIETLY AT THIS TIME, IV FLUIDS INFUSING.
--- NOTE | 2017-11-24 16:24 | NUR ---
APPLIED LIGHT DRESSING TO KARIN LEGS FOR ADMISSION, DR. EPPERSON STATES WANTS TO SEE WHAT ADMITTING DOCTOR WANTS TO DO AFTER HE SEES THE WOUNDS.
--- NOTE | 2017-11-24 16:30 | NUR ---
ACTUAL WEIGHT ON SCALE 120.0 KG
--- NOTE | 2017-11-24 16:39 | NUR ---
S: CALIN FAULKNER is a 52 F who presents with cellulitis. She has a history of Diabetes,Neuropath,Asthma,Hypothroid, Heroin abuse,Cirrhosis,Morbidly Obese. All medications in patient's chart were reviewed. O: VS: BP 148/91, P 86, RR 18,T 97.8 W 120 kg, HT154.94 cm, Scr= 0.5,CrCl= 161.568 ml/min A: Blood culture is pending. P: Vancomycin ordered for pharmacy to dose. Start Vancomycin 1 g IV Q8H. Vancomycin trough is drawn before the 4th dose on 11/26/2017 @ 0030. Vancomycin goal trough is between 10-15 mcg/ml. Pharmacy will follow and or advise on antibiotics use as needed.
--- NOTE | 2017-11-24 16:40 | NUR ---
PT REPORT GIVEN TO JOSE
--- NOTE | 2017-11-24 16:48 | NUR ---
PT TRANSPORTED TO [facility] VIA STRETCHER BY YULIANA PIERCE. PT TRANSFERRED TO BED FROM STRETCHER WITH STEADY GAIT. PT ASSESSMENT COMPLETE. PT A/O X3. SPEECH IS CLEAR. PT HAS SOME EXERTIONAL SOB. RESP EVEN AND UNLABORED. LUNG SOUNDS CLEAR. BOWEL SOUNDS ACTIVE X4. PT C/O RUQ ABDOMINAL PAIN R/T CURRENT HERNIA. WEAK RADIAL PULSES. STRONG PEDAL PULSES. PT HAS 3 WOUNDS TO RT LEG. NO DRAINAGE. SKIN SURROUNDING AREA REDDISH PURPLE W/ +1 PITTING EDEMA. 7 WOUNDS TO LT LEG. SMALL AMOUNT OF SEROUS DRAINAGE. SURROUNDING SKIN REDDISH/PURPLE. +1 PITTING EDEMA. CURAD,TELFA,KERLIX APPLIED TO BOTH LOWER EXTREMITIES. ELEVATED ON PILLOW. #18 LN SL. SITE APPEARS HEALTHY. PLAN OF CARE DISCUSSED. SAFETY PRECAUTIONS IN PLACE. CALL LIGHT IN REACH. WILL CONTINUE TO MONITOR.
[2017-11-24 17:00] VITALS: BP 133/76
--- NOTE | 2017-11-24 17:01 | NUR ---
PT TAKEN TO MED SURG PER STRETCHER FOR ADMISSION.
--- NOTE | 2017-11-24 18:30 | NUR ---
PT C/O BURNING PAIN TO BLE, LET PT KNOW THAT DOCTOR WILL BE MADE AWARE OF HER REQUEST AND THAT SHE DOES NOT WANT THE TRAMADOL DUE TO IT MAKING HER SICK. PT STATES UNDERSTANDING. WILL CONTINUE TO MONITOR
[2017-11-24 20:08] VITALS: BP 99/56
--- NOTE | 2017-11-24 20:15 | NUR ---
PT REQUESTING SOMETHING FOR PAIN. UPON PREPARING TO ADMINISTER TRAMADOL PER PHYSICIAN ORDERS, PT REFUSED STATING IT DOESN'T WORK FOR HER AND THEN SHE STATED "IT MAKES ME SICK." SHE REFUSED TO TAKE IT, BUT STATED SHE HAS TO HAVE SOMETHING STRONGER FOR PAIN. SHE DEMANDED I CALL PHYSICIAN FOR FURTHER ADDITIONAL ORDERS.
--- NOTE | 2017-11-24 20:45 | NUR ---
PHYSICIAN NOTIFIED OF PT REFUSAL OF PAIN MEDICATION ORDERED, ADDITIONAL ORDERS RECEIVED AT THIS TIME. PT INFORMED OF CHANGE. WILL MEDICATE ORDERS ARE VERIFIED AND AVAILABLE. NO S/S OF DISTRESS, PT IS IN BED W/FEET ELEVATED ON PILLOWS WATCHING TV AND EATING ICE. DRESSING TO LOWER EXT BILAT CDI.
--- NOTE | 2017-11-24 21:58 | NUR ---
I ATTEMPTED TO MEDICATE PT FOR PAIN REQUESTED UPON WAITING FOR ORDERS TO BE PLACED AND VERIFIED. PT WAS TOO DROWSY TO REMAIN AWAKE TO ANSWER PAIN RELATED QUESTIONS. NOT MEDICATED AT THIS TIME.
--- NOTE | 2017-11-25 00:15 | NUR ---
PT IS SLEEPING SOUNDSLY W/LIGHTS AND TV ON. NO S/S OF DISTRESS NOTED. CALL LIGHT IS AT BEDSIDE. WILL CONTINUE TO MONITOR.
--- NOTE | 2017-11-25 03:43 | NUR ---
PT ANTIBIOTIC THERAPY COMPLETED AND IV SITE FLUSHED/SITE APPEARS HEALTHY. PT WAS SLEEPING I ENTERED ROOM, BUT AWOKE AND SPOKE WHEN I TOLD HER WHAT I WAS DOING AND ASKED HER IF SHE NEEDED ANYTHING, STATING "NO" AND SHAKING HER HEAD. PT RETURNED BACK TO SLEEP PRIOR TO ME LEAVING ROOM. NO S/S OF PAIN OR DISTRESS NOTED AT THIS TIME. FEET ARE ELEVATED ON PILLOWS X2. CALL LIGHT AT SIDE, LIGHTS AND TV ARE ON.
[2017-11-25 04:31] VITALS: BP 96/56
--- NOTE | 2017-11-25 05:10 | NUR ---
PT CALLED TO REQUEST PAIN MEDICATION/PROVIDED. IV SITE PATENT/FLUSHED AND APPEARS HEALTHY AT THIS TIME. DRESSING TO FEET BILATERALLY CDI AND ELEVATED AND REPOSITIONED ON TWO PILLOWS. REQUESTING SNACK AT THIS TIME/CRACKERS PROVIDE.
[2017-11-25 05:52] LABS: HEMOGLOBIN 13.5 g/dl (12.0-16.0); IMMATURE GRANULOCYTES 0.3 % (0.0-5.0); MEAN CELL VOLUME 94.3 fL CALC (80.0-100.0); MEAN CORPUSCULAR HGB CONC 32.9 g/L CALC (32.0-36.0); NEUT# 6.4 thou/uL (2.00-7.15); RED BLOOD COUNT 4.35 mill/uL (4.20-5.60); RED CELL DISTRI WIDTH 13.2 % (11.5-15.5)
[2017-11-25 06:26] LABS: ALBUMIN 3.1 g/dL (3.2-5.0); ALKALINE PHOSPHATASE 182 u/l (38-126); ANION GAP 11 (6-22 (CALC)); BILIRUBIN, TOTAL 0.8 mg/dL (0.0-1.4); BUN 10 mg/dL (7-17); BUN/CREATININE RATIO 18 (12-20 (CALC)); CARBON DIOXIDE 25 mmol/l (22-30); CHLORIDE 108 mmol/l (95-108); CREATININE 0.5 mg/dL (0.5-1.0); GFR > 60 ML/MIN (>=60 (CALC)); GFR FOR AFR.AMER. > 60 ML/MIN (>=60 (CALC)); MAGNESIUM 1.6 mg/dL (1.6-2.3); POTASSIUM 4.5 mmol/l (3.5-5.1); SGOT/AST 37 u/l (14-36); SODIUM 140 mmol/l (137-146); TOTAL PROTEIN 6.6 g/dL (6.3-8.2)
--- NOTE | 2017-11-25 07:15 | NUR ---
REPORT RECEIVED BY ALICE. PT IS SLEEPING IN BED WITH NO S/S OF DISTRESS NOTED. CALL LIGHT IN REACH.
[2017-11-25 07:59] VITALS: BP 111/72
--- NOTE | 2017-11-25 08:55 | NUR ---
MEDICATED PT WITH AM MEDS SEE EMAR. ASSESSMENT DONE. PT STATED PAIN 4/10 BILAT LEGS. LUNG SOUND CLEAR. PT IS A&O X3. #18 LJ NECK THAT APPEARS HEALTHY. BILAT LEG DRESSING IS CDI. PT DENIES NEEDS AT THIS TIME. SAFETY PRECAUTIONS REINFORCED AND CALL LIGHT IN REACH.
--- NOTE | 2017-11-25 11:53 | NUR ---
MEDICATED PT WITH PERCOCET FOR PAIN IN BILAT LEGS SEE EMAR. DRESSING CHANGE TO RIGHT LEG. PT DENIES NEEDS AT THIS TIME. CALL LIGHT IN REACH.
[2017-11-25 11:59] LABS: URINE BILIRUBIN - DIPSTICK NEGATIVE (NEGATIVE); URINE BLOOD DIPSTICK TRACE-LYSED (NEGATIVE); URINE COLOR YELLOW; URINE GLUCOSE - DIPSTICK NEGATIVE (NEGATIVE); URINE KETONE NEGATIVE (NEGATIVE); URINE LEUK ESTERASE NEGATIVE (NEGATIVE); URINE NITRITE - DIPSTICK NEGATIVE (Negative); URINE PROTEIN - DIPSTICK NEGATIVE (NEG-TRACE); URINE SPECIFIC GRAVITY 1.025
[2017-11-25 12:02] LABS: URINE CLARITY CLEAR
--- NOTE | 2017-11-25 12:07 | NUR ---
DR. MUHAMMAD AND SANTOSH MERINO AT BEDSIDE TO ASSESS PT.
--- NOTE | 2017-11-25 13:57 | NUR ---
DR. QUINTANA AT BEDSIDE TO ASSESS PT WOUNDS.
--- NOTE | 2017-11-25 14:50 | NUR ---
DRESSING CHANGE TO BALIT LEGS AND SANTYL MEDICATION APPLIED TO WOUNDS PER ORDERS SEE EMAR. PT IS EATING PIZZA ENCOURAGE PT TO TRY TO FOLLOW HER DIABETIC DIET. PT STATED OKAY AND EAT ANOTHER SLICE OF PIZZA. CALL LIGHT IN REACH.
[2017-11-25 16:00] VITALS: BP 120/70
[2017-11-25] MEDS ORDERED: LORTAB 5/3255 MG PO (16:35)
--- NOTE | 2017-11-25 18:38 | NUR ---
SANTOSH ORTIZ STATED THAT THEY WILL BE DOINH THE US TOMORROW.
--- NOTE | 2017-11-25 19:38 | NUR ---
PATIENT RESTING IN BED AT THIS TIME WITH HOB ELEVATED. AWAKE ALERT AND ORIENTEDX3. C/O SEVERE KARIN LEG PAIN 9/10 ON PAIN SCALE. MEDICATED WITH OXYCODONE 10MG PO FOR PAIN. PATIENT WITH KARIN LE DRESSING INTACT AND SECURED WITH AMY WRAPS. RIGHT LEG REWRAPPED DUE TO BEING TOO TIGHT. BLE ELEVATED ON PILLOWS. CMS TO TOES WNL. PULSES ARE PALPABLE. IV SITE TO LEFT IJ INTACT WITH VANCO INFUSING AT THIS TIME. SITE APPEARS HEALTHY AT THIS TIME. VOIDING DARK DONATO URINE IN THE BR. STATES THAT HER LAST BM WAS YESTERDAY. PATIENT PROVIDED WITH DIET COKE-SAFETY PRECATIONS REINFORCED. SAFETY PRECATIONS REINFORCED. CALL LIGHT IN REACH. WILL CONT TO MONITOR.
[2017-11-25 19:45] VITALS: BP 119/64
[2017-11-26 00:02] VITALS: BP 132/82
--- NOTE | 2017-11-26 00:35 | NUR ---
PATIENT RESTING IN BED APPEARS SLEEPING AT THIS TIME. BLE ELEVATED ON PILLOWS. CALL LIGHT IN REACH. WILL CONT TO MONITOR.
[2017-11-26 01:44] LABS: ANION GAP 10 (6-22 (CALC)); BUN 15 mg/dL (7-17); BUN/CREATININE RATIO 25 (12-20 (CALC)); CARBON DIOXIDE 26 mmol/l (22-30); CHLORIDE 108 mmol/l (95-108); CREATININE 0.6 mg/dL (0.5-1.0); GFR > 60 ML/MIN (>=60 (CALC)); GFR FOR AFR.AMER. > 60 ML/MIN (>=60 (CALC)); POTASSIUM 4.6 mmol/l (3.5-5.1); SODIUM 140 mmol/l (137-146)
[2017-11-26 04:19] VITALS: BP 103/58
--- NOTE | 2017-11-26 04:24 | NUR ---
PATIENT APPEARS SLEEPING AT THIS TIME IN NO ACUTE DISTRESS. EYES CLOSED AND RESP ARE EVEN AND UNLABORED, SALINE LOCK TO LEFT IJ IN PLACE. VANCO FINISHING. CALL LIGHT IN REACH. WILL CONT TO MONITOR.
--- NOTE | 2017-11-26 05:56 | NUR ---
PATIENT CONT TO VOID DARK DONATO URINE. C/O KARIN LE PAIN-8/10 ON PAIN SCALE. MEDICATED WITH OXYCODONE 10MG PO FOR PAIN. FEET ELEVATED ON PILLOWS. CALL LIGHT IN REACH. WILL CONT TO MONITOR.
--- NOTE | 2017-11-26 07:10 | NUR ---
REPORT RECEIVED FROM YULIANA HIGUERA;PT APPEARS TO BE SLEEPING IN SEMI FOWLERS POSITION;NO S/S OF DISTRESS NOTED;RESPIRATIONS APPEAR EVEN AND UNLABORED ON RA;CONTACT PRECAUTIONS IN PLACE FOR HX OF MRSA;FALL PRECAUTIONS NOTED WITH BED IN THE LOWEST POSITION AND CALL LIGHT IN REACH;WILL CONTINUE TO MONITOR
[2017-11-26 08:36] VITALS: BP 98/58
--- NOTE | 2017-11-26 08:40 | NUR ---
PT RESTING AT BEDSIDE COMPLAINING OF BLE PAIN RATING 8/10 ON THE PAIN SCALE AND REQUESTS PAIN MEDICATION;PT MEDICATED WITH PRN ULTRAM 50MG PO,WILL MONITOR FOR EFFECT;VS OBTAINED AND ASSESSMENT COMPLETED;RESPIRATIONS EVEN AND UNLABORED ON RA,CLEAR LUNG SOUNDS NOTED WITH WHEEZING PRESENT AT TIMES;ABDOMEN DISTENDED/SOFT ON PALPATION AND ACTIVE IN ALL 4 QUADRANTS;WEAK PEDAL PULSES WITH +1 EDEMA NOTED,ENCOURAGED ELEVATION OF BLE;BLE ULCERS NOTED AND DRESSINGS REMOVED; WOUNDS CLEANSED WITH SALINE, SILVADENE APPLIED PER ORDER;WOUNDS DRESSED WITH ADAPTIC,4X4,KERLIX AND AMY WRAPS:PT TOLERATED WELL;NICOTINE PATCH APPLIED TO RIGHT SHOULER AND FLU SHOT ADMINISTERED TO RIGHT ARM;#18G TO LEJ FLUSHED AND PATENT,SITE APPEARS HEALTHY;ACCUCHECK WAS 143 THIS MORNING,NO COVERAGE NEEDED AT THIS TIME;CONTACT PRECAUTIONS IN PLACE FOR HX OF MRSA;PT DENIES ANY ADDITONAL NEEDS AT THIS TIME AND IS INSTUCTED TO CALL FOR ASSISTANCE IF NEEDED;FALL PRECAUTIONS IN PLACE WITH CALL LIGHT IN REACH;WILL CONTINUE TO MONITOR
--- NOTE | 2017-11-26 08:53 | NUR ---
S: CALIN FAULKNER is a 52 F who presents with cellulitis. She has a history of diabetes, neuropath, asthma, hypothyroud, heroin abuse, cirrhosis, morbidly obese. All medications in patient's chart were reviewed. O: VS: BP 98/58, P 89, RR 20, T 97.5 W 94, HT 61'', Scr = 0.6 ,CrCl= 135 <ml/min> A: Blood culture is pending P: Patient is on Vancomycin Continue Vancomycin 1 g IV Q 8 H. Vancomycin trough is drawn on 11/28/17 at 0830. Vancomycin goal trough is between <10-15 mcg/ml>. Pharmacy will follow and or advise on antibiotics use as needed.
--- NOTE | 2017-11-26 12:20 | NUR ---
PT RESTING AT BEDSIDE PLAYING ON HER PHONE;PT COMPLAINS OF BLE PAIN RATING 8/10 ON THE PAIN SCALE AND REQUESTS PAIN MEDICATION;PT MEDICATED WITH PRN ROXICODONE 10MG PO;RESPIRATIONS REMAIN EVEN AND UNLABORED ON RA;ACCUCHECK 135 FOR LUNCH,NO COVERAGE NEEDED;DRESSINGS TO BLE REMAIN CDI;PT DENIES ANY ADDITIONAL NEEDS AT THIS TIME AND IS INSTRUCTED TO CALL FOR ASSISTANCE IF NEEDED;CALL LIGHT IN REACH;WILL CONTINUE TO MONITOR
--- NOTE | 2017-11-26 13:35 | NUR ---
PT TRANSFERRED TO ULTRASOUND AND CT IN STABLE CONDITION VIA WHEELCHAIR ACCOMPANIED BY DEREK ARMANDO
--- NOTE | 2017-11-26 14:35 | NUR ---
PT ARRIVED BACK TO FLOOR IN STABL CONDITION VIA WHEELCHAIR AND IS RE-POSITIONED BACK INTO BED.
--- NOTE | 2017-11-26 14:58 | NUR ---
AT BEDSIDE DISCUSSING POC.
[2017-11-26 15:05] VITALS: BP 119/57
--- NOTE | 2017-11-26 17:00 | NUR ---
PT RESTING IN SEMI FOWLERS POSITION;DENIES ANY CURRENT PAIN TO BLE,WHICH REMAIN ELEVATED ON X2 PILLOWS;RESPIRATIONS EVEN AND UNLABORED ON RA;BLE DRESSINGS REMAIN CDI AT THIS TIME;CURRENT ACCUCHECK 128,NO COVERAGE NEEDED AT THIS TIME;PT DENIES ANY CURRENT NEEDS AND IS INSTRUCTED TO CALL FOR ASSISTANCE IF NEEDED;CALL LIGHT IN REACH;WILL CONTINUE TO MONITOR
--- NOTE | 2017-11-26 19:15 | NUR ---
PT RESTING IN BED AWAKE. PT IS ALERT AND ORIENTED X3. SHIFT ASSESSMENT COMPLETED AT THIS TIME. IV PATENT X1. PT WITH COMPLAINTS OF LYMAN AND LEG PAIN. WILL MEDICATE PER MD ORDERS. DRESSINGS IN PLACE TO BLE. CALL LIGHT IN REACH. WILL CONTINUE TO MONITOR
[2017-11-26 19:25] VITALS: BP 118/75
--- NOTE | 2017-11-26 20:52 | NUR ---
P0T REQUESTING MULTIPLE SNCAKE. SANDWICH PROVIDED AND NOW REQUESTING AN ICE CREAM. COUNSLEED PT ON DIETARY RESTRICTIONS. PT CONTINUES TO REQUEST ICE CREAM. ICE CREAM PROVIDED.
--- NOTE | 2017-11-27 00:08 | NUR ---
PT RESTING IN BED WITH EYES CLOSED. PT AROUSES TO NURSE IN ROOM. PT THEN REQUESTS CRACKERS. AGAIN REINFORCED THAT PT IS ON A DIABETIC DIET. PT CONTINUED TO REQUEST CRACKERS. CRACKERS PROVIDED. CALL LIGHT IN REACH. WILL CONTINUE TO MONTLORI
--- NOTE | 2017-11-27 03:40 | NUR ---
PT REQUESTING PAIN MEDICATION. PT MEDICATED PER MD ORDERS AND MAR. PT THEN REQUESTED A SODA. AGAIN INSTRUCTED PATIENT THAT SHE IS ON DIETARY RESTRICTIONS FOR DM AND SHE HAS HAD A SANDWICH AN ICE CREAM AND CRACKERS. EXPLAINED THAT THIS [facility] WOULD PROVIDE HER A DIET SODA. PT HESITANTLY AGREED. DIET SODA PROVIDED. CALL LIGHT IN REACH. WILL CONTINUE TO MONITOR
[2017-11-27 04:12] VITALS: BP 106/67
[2017-11-27 05:26] LABS: HEMATOCRIT 40.5 % (37.0-47.0); HEMOGLOBIN 13.3 g/dl (12.0-16.0); IMMATURE GRANULOCYTES 0.4 % (0.0-5.0); MEAN CELL VOLUME 93.8 fL CALC (80.0-100.0); MEAN CORPUSCULAR HGB 30.8 pG CALC (26.0-32.0); MEAN CORPUSCULAR HGB CONC 32.8 g/L CALC (32.0-36.0); NEUT# 5.65 thou/uL (2.00-7.15); RED BLOOD COUNT 4.32 mill/uL (4.20-5.60); RED CELL DISTRI WIDTH 12.9 % (11.5-15.5)
[2017-11-27 05:42] LABS: ALBUMIN 2.9 g/dL (3.2-5.0); ALKALINE PHOSPHATASE 157 u/l (38-126); ANION GAP 10 (6-22 (CALC)); BILIRUBIN, TOTAL 0.7 mg/dL (0.0-1.4); BUN 14 mg/dL (7-17); BUN/CREATININE RATIO 28 (12-20 (CALC)); CARBON DIOXIDE 30 mmol/l (22-30); CHLORIDE 105 mmol/l (95-108); CREATININE 0.5 mg/dL (0.5-1.0); GFR > 60 ML/MIN (>=60 (CALC)); GFR FOR AFR.AMER. > 60 ML/MIN (>=60 (CALC)); POTASSIUM 4.4 mmol/l (3.5-5.1); SGOT/AST 47 u/l (14-36); SODIUM 139 mmol/l (137-146); TOTAL PROTEIN 6.3 g/dL (6.3-8.2)
[2017-11-27 08:47] VITALS: BP 121/54
--- NOTE | 2017-11-27 08:47 | NUR ---
PT RESTING IN BED, NO SIGNS OF DISTRESS NOTED, RESP EVEN AND UNLABORED. PT NASAL SWAB FOR MRSA RESULTED NEG, WILL KEEP ON PRECAUTIONS DISCUSSED WITH FIELD CONTACT PERSON PENDING WOUND CULTURE RESULTS. DISCUSSED POC WITH PT, VSS, ASSESSMENT COMPLETED. DRESSINGS TO BLE CDI, WILL CHANGE ONCE MD MAKES ROUNDS SO HE MAY SEE ULCERS. PT HAS TABACCO "DIP" IN POCKET, ENCOURAGED PT NOT TO USE SINCE SHE IS WEARING A NICOTINE PATCH, PT STATES SHE HAS NOT USED IT AND WILL NOT USE IT. INITIATED VANCO INFUSION AT THIS TIME. CALL LIGHT IN REACH,CONTINUE TO MONTIOR.
[2017-11-27 10:19] LABS: PROTHROMBIN TIME 10.4 SECONDS (9.0-12.5)
--- NOTE | 2017-11-27 10:20 | NUR ---
PT RESTING IN BED, VISITORS AT BEDSIDE, PT C/O PAIN 09/16 MEDICATED WITH ROXICODONE, DISCUSSED ALTERNATING PAIN MEDICATION, PT IN AGREEMENT. CALL LIGHT IN REACH,CONTINUE TO MONITOR.
--- NOTE | 2017-11-27 11:09 | NUR ---
SANTOSH AT BEDSIDE TO SPEAK WITH PT.
--- NOTE | 2017-11-27 11:21 | NUR ---
PRINTED CIRCUIT BOARD PANELS PLATER TO SPEAK WITH PT
--- NOTE | 2017-11-27 11:30 | NUR ---
AND SANTOSH TO BEDSIDE TO SEE PT. DRESSINGS REMOVED TO BLE, SEEN BY , PHOTOS OBTAINED,SEE CHART. DISCUSSED PLANS FOR DISCHARGE, PT EAGER FOR DISCHARGE. CLEANSED WOUNDS WITH NS AND SILVADENE APPLIED, COVERED WITH ADAPTIC AND WRAPPED WITH KERLEX, SECURED WITH AMY WRAP. PT PULLED OFF NICOTINE PATCH, CALL LIGHT IN REACH,CONTINUE TO MONITOR.
--- NOTE | 2017-11-27 11:40 | NUR ---
FRIEND OF PT REQUESTING TO TAKE PT DOWN STAIRS FOR "FRESH AIR", INFORMED PT AND FRIEND DUE TO IV ACCESS AND SAFETY REASONS, IT'S BEST FOR PT TO REMAIN ON FLOOR, BOTH VERBALIZED UNDERSTANDING.
[2017-11-27] MEDS ORDERED: LORTAB 5/3255 MG PO (12:53)
[2017-11-27] MEDS ORDERED: DOXYCYC MONO100 M1 PO (12:53)
--- NOTE | 2017-11-27 13:15 | NUR ---
DISCUSSED DISCHARGE PAPER WORK, PRESCRIPTIONS GIVEN. FRIEND AT BEDSIDE. WESLEY REMOVED CATHETER INTACT, NO BLEEDING NOTED,AND PRESSURE DRESSING APPLIED.
--- NOTE | 2017-11-27 13:20 | NUR ---
Discharge instructions given. Patient verbalizes understanding of same. Discharged in stable condition via Wheelchair to Home with friend. All belongings sent with pt.
== END 2017-11-27 13:20 | disposition home or self-care (01) | DRG 638 ==
LOC: ED 14:44 → ED-I 15:41 → ED 15:51 → MS2 15:52
PROVIDERS: Family Medicine; Internal Medicine; Nurse Practitioner Family; ADMIT Internal Medicine Nephrology; ATTEND Internal Medicine Nephrology
DX: E11.628 Type 2 diabetes mellitus with other skin complications (principal); L03.116 Cellulitis of left lower limb; Z68.43 Body mass index [BMI] 50.0-59.9, adult; L97.828 Non-pressure chronic ulcer of other part of left lower leg with other specified severity; L97.818 Non-pressure chronic ulcer of other part of right lower leg with other specified severity; L03.115 Cellulitis of right lower limb; E11.622 Type 2 diabetes mellitus with other skin ulcer; E11.42 Type 2 diabetes mellitus with diabetic polyneuropathy; E66.01 Morbid (severe) obesity due to excess calories; J44.9 Chronic obstructive pulmonary disease, unspecified; E03.9 Hypothyroidism, unspecified; B19.20 Unspecified viral hepatitis C without hepatic coma; K70.10 Alcoholic hepatitis without ascites; K70.30 Alcoholic cirrhosis of liver without ascites; F15.10 Other stimulant abuse, uncomplicated; F11.11 Opioid abuse, in remission; F17.210 Nicotine dependence, cigarettes, uncomplicated; F10.21 Alcohol dependence, in remission; K43.9 Ventral hernia without obstruction or gangrene; Z23 Encounter for immunization; Z91.14 Patient's other noncompliance with medication regimen; Z79.4 Long term (current) use of insulin
CPT/HCPCS: J1650